=== PATIENT | male | born 1965 | race Native Hawaiian/Other Pacific Islander ===

== ENCOUNTER 2018-08-23 08:06 | Outpatient (CLI) | payer OTHER ==
[~2018-08-23] VITALS: Ht 172.7 cm; Wt 113.4 kg
[~2018-08-23 08:06] MED LIST: ASA LO-DOSE81 MG PO; DIVA500T PO; LIPITOR20 MG PO; LORA1TAB17 PO; ROSU10TA PO
== END 2018-08-23 19:43 | disposition home or self-care (01) ==
LOC: NM 08:06
DX: Z01.818 Encounter for other preprocedural examination (principal); R94.31 Abnormal electrocardiogram [ECG] [EKG]
CPT/HCPCS: A9500; J2785